=== PATIENT | female | born 1980 | race Two or more races ===

== ENCOUNTER 2023-09-25 08:00 | Day surgery (SDC) | payer MEDICAID ==
[2023-09-20 15:16] LABS: BASOPHILS % (AUTO) 0.5 % (0-1); EOSINOPHILS # (AUTO) 0.1 X10'3 (0-0.9); EOSINOPHILS % (AUTO) 1.1 % (0-6); LYMPHOCYTES # (AUTO) 1.7 X10'3 (1.1-4.8); LYMPHOCYTES % (AUTO) 23.4 % (21-51); MEAN CORPUSCULAR HEMOGLOBIN 30.1 PG (27.0-31.0); MEAN CORPUSCULAR HGB CONC 34.2 g/dL (33.0-36.5); MEAN CORPUSCULAR VOLUME 88.2 FL (78-98); MEAN PLATELET VOLUME 8.5 FL (7.4-10.4); MONOCYTES # (AUTO) 0.7 X10'3 (0-0.9); MONOCYTES % (AUTO) 9.1 % (2-12); NEUTROPHILS # (AUTO) 4.9 X10'3 (1.8-7.7); NEUTROPHILS % (AUTO) 65.9 % (42-75); PRE OP HEMATOCRIT 42.2 % (35.0-45.0); PRE OP HEMOGLOBIN 14.4 g/dL (12.0-16.0); PRE OP PLATELET COUNT 273 X10'3 (140-440); PRE OP WHITE BLOOD COUNT 7.4 10'3 (4.8-10.8); RED BLOOD COUNT 4.79 X10'6 (4.20-5.60); RED CELL DISTRIBUTION WIDTH 12.9 % (11.5-14.5)
[2023-09-20 15:21] LABS: PRE OP PROTIME 11.2 SECONDS (9.0-12.0)
[2023-09-20 15:25] LABS: ALBUMIN 3.8 G/DL (3.4-5.0); ALBUMIN/GLOBULIN RATIO 0.9 (1.1-1.5); ALKALINE PHOSPHATASE 71 IU/L (46-116); BLOOD UREA NITROGEN 5 MG/DL (7-18); BUN/CREATININE RATIO 8.3 (10.0-20.0); CALCIUM 8.8 MG/DL (8.5-10.1); CHLORIDE 101 MMOL/L (99-107); HCG SERUM QL NEGATIVE; PRE OP ANION GAP 5 (8-16); PRE OP BILIRUB, TOTAL 1.5 MG/DL (0.0-1.0); PRE OP GLUCOSE 101 MG/DL (70-104); PRE OP POTASSIUM 3.9 MMOL/L (3.4-5.1); PRE OP SODIUM 137 MMOL/L (135-145); TOTAL CARBON DIOXIDE 31.1 MMOL/L (24-32); eGFR > 90 ML/MIN
[2023-09-20 15:27] LABS: PRE OP ALT 208 U/L (30-65); PRE OP AST 139 U/L (10-37)
[2023-09-25] VITALS (21 sets, daily range): BP systolic 122–147; BP diastolic 76–92; PULSE 61–77; RESP 12–16; TEMP 97.3–98.5; O2SAT 93–100
[~2023-09-25] VITALS: Ht 157.5 cm; Wt 67.1 kg
[2023-09-25] MEDS: cefazolin 2gm/D5W 100mL 100 ML IV ONE (05:30)
[2023-09-25] MEDS: famotidine 20mg tablet PO ONE ×2 (05:30→10:25)
[~2023-09-25 08:00] MED LIST: ESCI20TA39 PO; LETR2.5T7 PO; LISI20TA28 PO; LORA10TA7 PO; ONDA-104 PO; PROC10TA97 PO; normal saline 1000ml 1,000 ML IV SCH
[2023-09-25] MEDS: metoclopramide 10mg tablet PO ONE (10:25)
[2023-09-25] MEDS: metoclopramide 10mg tablet ONE (10:28)
[2023-09-25] MEDS ORDERED: BUPIVAcaine/PF 2.5mg/ml (0.25%) 10ml vial ONE (15:12)
[2023-09-25] MEDS ORDERED: BUPIVACAINE liposomal/PF 13.3 MG/ML vial IM ONE (15:12)
[2023-09-25] MEDS ORDERED: midazolam 1 mg/ML 2ml injection ONE (15:18)
[2023-09-25] MEDS ORDERED: fentaNYL /PF 50mcg/ml 5ml ampule ONE (15:18)
[2023-09-25] MEDS ORDERED: propofol inj 20 ML IV ONE (15:21)
[2023-09-25] MEDS ORDERED: ROPIVAcaine 0.5% (5mg/ml) 30ml vial ONE (15:21)
[2023-09-25] MEDS ORDERED: sevoflurane 250ml liquid IH ONE (15:26)
[2023-09-25] MEDS ORDERED: meperidine/PF 25mg/ml syringe IV PRN ×3 (16:00)
[2023-09-25] MEDS ORDERED: morphine 4 MG/ML inj SYRINge IV PRN (16:00)
[2023-09-25] MEDS ORDERED: proCHLORperazine 10 MG/2 ml inj IV PRN (16:00)
[2023-09-25] MEDS ORDERED: ondansetron/PF 4mg/2ml inj IV PRN ×2 (16:00→19:00)
[2023-09-25] MEDS: ringers solution, lacted 1,000 ML IV SCH ×3 (16:00→19:03)
[2023-09-25] MEDS ORDERED: labetalol 20mg/4ml (5mg/ml) syringe IV PRN (16:00)
[2023-09-25] MEDS ORDERED: morphine 2 MG/ML inj. syringe IV PRN (16:00)
[2023-09-25] MEDS ORDERED: enalaprilat dihydrate 2.5mg/2ml vial IV PRN (16:00)
[2023-09-25] MEDS: methylene blue (5mg/ml) 50mg/10ml ampul IV ONE (16:24)
[2023-09-25] MEDS ORDERED: dexamethasone sod phosphate 4mg/ml inj. ONE (18:14)
[2023-09-25] MEDS ORDERED: ondansetron/PF 4mg/2ml inj ONE (18:14)
[2023-09-25] MEDS ORDERED: bacitracin 15gm ointment TP ONE (18:19)
[2023-09-25] MEDS: bacitracin 15gm ointment TP ONE (18:26)
[2023-09-25] MEDS ORDERED: acetaminophen 1,000mg/100ml IV 100 ML IV ONE (18:37)
[2023-09-25] MEDS ORDERED: bisacodyl 10mg suppository rectal RC PRN (19:00)
[2023-09-25] MEDS ORDERED: proCHLORperazine 10mg tablet PO PRN (19:30)
[2023-09-25] MEDS ORDERED: loratadine 10mg tablet PO PRN (19:30)
[2023-09-25] MEDS: ondansetron 4mg rapidly disintigrating tab PO PRN (20:20)
[2023-09-25] MEDS: morphine 2 MG/ML inj. syringe IV PRN (20:23)
[2023-09-26] MEDS: ceFAZolin 1GM/D5W- ADD-VANTAGE 50 ML IV SCH (00:12)
[2023-09-26] MEDS: HYDROcodone/acetaminophen 5mg/325mg tablet PO PRN (00:49)
[2023-09-26 02:30] VITALS: BP 125/73; PULSE 72; TEMP 98; O2SAT 99
[2023-09-26 07:00] VITALS: BP 116/61; PULSE 72; RESP 16; TEMP 97.1; O2SAT 97
[2023-09-26] MEDS: ESCITALOPRAM 10 mg tablet 10 MG TABLET PO SCH (09:32)
[2023-09-26 09:34] VITALS: BP_SYST 116; PULSE 72
[2023-09-26] MEDS: lisinopril 20mg tablet PO SCH (09:34)
[2023-09-26 13:12] VITALS: RESP 16
== END 2023-09-26 14:41 | disposition home or self-care (01) ==
LOC: PAS 08:00 → SUR 3N 19:07 → PAS 09-26 14:41
PROVIDERS: ATTEND Surgery
DX: C50.411 Malignant neoplasm of upper-outer quadrant of right female breast (principal); I10 Essential (primary) hypertension; K21.9 Gastro-esophageal reflux disease without esophagitis; F41.9 Anxiety disorder, unspecified; F32.A Depression, unspecified; Z79.899 Other long term (current) drug therapy
CPT/HCPCS: 19301; 36415; 38525; 38900; 76098; 80053; 82948; 84703; 85025; 85610; 85730; 86885; 86900; 86901; 87081; A6258; J0131; J0690; J1100; J2250; J2270; J2405; J2704; J2795; J3010; J3490; J7030; J7120; Q9968; Z7506; Z7508; Z7512; A4215; A4615; A4618; A6213; A6253; A6449; A7000; C9250; C9290; G0378; J8999